=== PATIENT | female | born 1950 | race Caucasian/White ===

== ENCOUNTER → 2016-08-26 | Outpatient (CLI) | payer MEDICARE | END | disposition home or self-care (01) | LOC: PCVCIMAG 10:23 | PROVIDERS: ATTEND Internal Medicine | DX: I42.8 Other cardiomyopathies (principal); I10 Essential (primary) hypertension; E78.5 Hyperlipidemia, unspecified; I34.0 Nonrheumatic mitral (valve) insufficiency; F17.200 Nicotine dependence, unspecified, uncomplicated | CPT/HCPCS: 93017; 93306; G0463 ==

== ENCOUNTER → 2017-03-16 | Outpatient (CLI) | payer MEDICARE | END | disposition home or self-care (01) | LOC: PCVCCLINIC 16:24 | PROVIDERS: ATTEND Internal Medicine | DX: I10 Essential (primary) hypertension (principal); I42.8 Other cardiomyopathies; E78.5 Hyperlipidemia, unspecified; F17.200 Nicotine dependence, unspecified, uncomplicated; Z79.899 Other long term (current) drug therapy; Z90.710 Acquired absence of both cervix and uterus; Z88.8 Allergy status to other drugs, medicaments and biological substances | CPT/HCPCS: 80061; 93005; G0463 ==

== ENCOUNTER → 2017-09-14 | Outpatient (CLI) | payer MEDICARE | END | disposition home or self-care (01) | LOC: PCVCCLINIC 13:19 | DX: I42.8 Other cardiomyopathies (principal); E78.5 Hyperlipidemia, unspecified; I10 Essential (primary) hypertension; F17.210 Nicotine dependence, cigarettes, uncomplicated; Z79.899 Other long term (current) drug therapy | CPT/HCPCS: 80061; 93005; G0463 ==

== ENCOUNTER → 2018-03-22 | Outpatient (CLI) | payer MEDICARE | END | disposition home or self-care (01) | LOC: PCVCCLINIC 12:50 | PROVIDERS: ATTEND Internal Medicine | DX: I42.8 Other cardiomyopathies (principal); E78.5 Hyperlipidemia, unspecified; I10 Essential (primary) hypertension; F17.200 Nicotine dependence, unspecified, uncomplicated; F17.210 Nicotine dependence, cigarettes, uncomplicated | CPT/HCPCS: 80061; 93005; G0463 ==

== ENCOUNTER → 2018-09-09 | Outpatient (CLI) | payer MEDICARE ==
--- NOTE | 2018-09-09 15:01 | PCVCIMAG ---
APPROVED REPORT Study performed: 09/09/2018 12:50:19 EXAM: Comprehensive 2D, Doppler, and color-flow Echocardiogram Patient Location: Echo lab Status: routine BSA: 1.76 HR: 51 bpmBP: 130/80 mmHg Rhythm: NSR Other Information Study Quality: Good Risk Factors: Cardiac Risk Factors: HTN, Smoking Indications Cardiomyopathy Hypertension/HDD 2D Dimensions IVSd: 8.58 (7-11mm)LVOT Diam: 20.00 (18-24mm) LVDd: 39.16 mm PWd: 6.44 (7-11mm)Ascending Ao: 29.17 (22-36mm) LVDs: 23.26 (25-40mm) Left Atrium: 31.82 (27-40mm) Aortic Root: 23.04 mm LV Single Plane 4CH: 64.33 % LV Single Plane 2CH: 67.96 % Biplane EF: 67.1 % Volumes Left Atrial Volume (Systole) Single Plane 4CH: 29.17 mLSingle Plane 2CH: 47.37 mL LA ESV Index: 23.00 mL/m2 Aortic Valve AoV Peak Amarjit.: 2.26 m/s AO Peak Gr.: 20.35 mmHgLVOT Max P.14 mmHg AO Mean Gr.: 10.24 mmHgLVOT Mean P.34 mmHg AO V2 Mean: 1.52 m/sLVOT Max V: 1.88 m/s AO V2 VTI: 54.57 cmLVOT Mean V: 1.40 m/s RACHANA (VTI): 2.73 pm7ICDH V1 VTI: 47.43 cm RACHANA Vmax: 2.62 cm2 AI Vmax: 4.66 m/sSV (LVOT): 148.85 mL AI Rogers: 2.89 m/s2 AI PHT: 468.22 ms Mitral Valve IVRT: 89.97 ms TDI Medial E' Amarjit.: 0.08 m/s Lateral E' Amarjit.: 0.07 m/s Pulmonary Valve PV Peak Gr.: 4.32 mmHg Pulmonary Vein P Vein S: 0.60 m/sP Vein A: 0.39 m/s P Vein D: 0.37 m/sP Vein A Dur.: 128.0 msec P Vein S/D Ratio: 1.62 Tricuspid Valve TR Peak Amarjit.: 2.52 m/s TR Peak Gr.: 25.39 mmHg Left Ventricle The left ventricle is normal size. There is normal LV segmental wall motion. Mild concentric left ventricular hypertrophy. Left ventricular systolic function is normal. The left ventricular ejection fraction is within the normal range. LVEF is 65%. Very mild LVOT gradient The left ventricular diastolic function is normal. Right Ventricle The right ventricle is normal size. The right ventricular systolic function is normal. Atria The left atrium size is normal. The right atrium size is normal. Aortic Valve The aortic valve is mildly calcified, mildly stenotic Trace aortic regurgitation. Calculated aortic valve area is 2.4cm2 with maximum pressure gradient of 20 mmHg and mean pressure gradient of 10 mmHg. Mitral Valve The mitral valve is normal in structure. Mild mitral regurgitation. No evidence of mitral valve stenosis. Tricuspid Valve The tricuspid valve is normal in structure. Trace tricuspid regurgitation. Pulmonary artery pressure is 33mmHg. Pulmonic Valve The pulmonary valve is normal in structure. There is no pulmonic valvular regurgitation. Great Vessels The aortic root is normal in size. IVC is normal in size and collapses >50% with inspiration. Pericardium There is no pericardial effusion. <Conclusion> Left ventricular systolic function is normal. Mild concentric left ventricular hypertrophy. There is normal LV segmental wall motion. LVEF is 65%. Very mild LVOT gradient The Aortic valve is mildly calcified, mildly stenotic. Trace aortic regurgitation Calculated aortic valve area is 2.4cm2 with maximum pressure gradient of 20 mmHg and mean pressure gradient of 10 mmHg. Mild mitral annular calcification. Mild mitral regurgitation. Trace tricuspid regurgitation. Pulmonary artery pressure of 33mmHg. There is no pericardial effusion.
== END | disposition home or self-care (01) ==
LOC: PCVCIMAG 12:40
PROVIDERS: ATTEND Internal Medicine
DX: I34.0 Nonrheumatic mitral (valve) insufficiency (principal); I42.8 Other cardiomyopathies; I10 Essential (primary) hypertension; E78.5 Hyperlipidemia, unspecified; F17.210 Nicotine dependence, cigarettes, uncomplicated
CPT/HCPCS: 36415; 80061; 93005; 93306; G0463

== ENCOUNTER → 2019-01-25 | Outpatient (CLI) | payer MEDICARE | END | disposition home or self-care (01) | LOC: PCVCCLINIC 15:11 | PROVIDERS: ATTEND Nuclear Medicine Nuclear Cardiology | DX: I73.9 Peripheral vascular disease, unspecified (principal); I10 Essential (primary) hypertension; E78.5 Hyperlipidemia, unspecified; F17.210 Nicotine dependence, cigarettes, uncomplicated | CPT/HCPCS: G0463 ==

== ENCOUNTER → 2019-03-16 | Outpatient (CLI) | payer MEDICARE | END | disposition home or self-care (01) | LOC: PCVCCLINIC 15:15 | PROVIDERS: ATTEND Internal Medicine | DX: I42.8 Other cardiomyopathies (principal); I10 Essential (primary) hypertension; E78.5 Hyperlipidemia, unspecified; I65.23 Occlusion and stenosis of bilateral carotid arteries; I73.9 Peripheral vascular disease, unspecified; F17.210 Nicotine dependence, cigarettes, uncomplicated; Z80.9 Family history of malignant neoplasm, unspecified; Z82.49 Family history of ischemic heart disease and other diseases of the circulatory system; Z72.89 Other problems related to lifestyle; Z88.1 Allergy status to other antibiotic agents; Z88.8 Allergy status to other drugs, medicaments and biological substances; Z90.710 Acquired absence of both cervix and uterus | CPT/HCPCS: 36415; 80061; 93005; G0463 ==

== ENCOUNTER → 2019-04-27 | Outpatient (CLI) | payer MEDICARE ==
[~2019-04-27] MED LIST: REGADENOSON 0.4 MG/5 ML DISP.SYRIN. IV ONE
--- NOTE | 2019-04-27 09:21 | PCVCIMAG ---
APPROVED REPORT Indications Bruit Risk Factors Hypertension: Hyperlipidemia History of Smoking Doppler Spectral Velocity Analysis PSV / EDVPSV / EDV ECA (R) 90 / 14 cm/sECA (L) 106 / 16 cm/s dICA (R) 56 / 19 cm/sdICA (L) 64 / 22 cm/s Magdi (R) 64 / 19 cm/smICA (L) 72 / 22 cm/s pICA (R) 59 / 13 cm/spICA (L) 56 / 13 cm/s Bulb (R) 48 / 10 cm/sBulb (L) 51 / 14 cm/s dCCA (R) 82 / 18 cm/sdCCA (L) 74 / 19 cm/s mCCA (R) 89 / 17 cm/smCCA (L) 79 / 14 cm/s Vert (R) 49 / 10 cm/sVert (L) 53 / 14 cm/s ICA/CCA 0.72ICA/CCA 0.90 Basic Measurements Blood Pressure: Pulses: Right Left RightLeft Brachial(Sitting) 146/04lbHd175/74mmHgTemporal Real Time B-Mode Imaging Vert. (R)AntegradeVert. (L)Antegrade Findings The right carotid bulb has minimal plaque. The right proximal internal carotid artery shows no significant stenosis. The right common carotid artery shows no significant stenosis. The right external carotid artery shows no significant stenosis. The left carotid bulb has mild plaque. The left proximal internal carotid artery shows no significant stenosis. The left common carotid artery shows no significant stenosis. The left external carotid artery shows no significant stenosis. Conclusion 1. Mild bilateral plaquing without significant stenosis. 2. Antegrade vertebral flow.
--- NOTE | 2019-04-27 16:06 | PCVCIMAG ---
APPROVED REPORT Imaging Protocol: Rest Tc-99m/Stress Tc-99m 1 day Study performed: 04/27/2019 09:40:13 Indication: Obstructive Cardiomyopathy Patient Location: Out-Patient Stress Nurse: Henrietta Kam RN, [place] RN NE Tech:Angelika Lebron [facility] Ht: 5 ft 2 in Wt: 169 lbs BSA: 1.78 m2 HR: 54 bpm BP: 141/63 mmHg BMI: 30.9 Rhythm: Bradycardia Medical History Medical History: HTN, CVD, PVD, Current Smoker Medications: Atenolol, Aspirin, Norvasc, Plavix, Crestor Allergies: Bactrim, Flagyl, Phenobarbital Cardiac Risk Factors: Age Pretest Chest Pain Characteristics: No chest pain Exercise History: Physically active Meds Held (24 hrs): Atenolol Resting Data Rest SPECT myocardial perfusion imaging was performed in supine position 45 minutes following the intravenous injection of 10.1 mCi of Tc-99m Sestamibi. Time of rest injection: 09 Date: 04/27/2019 Administration Route: IV Administration Site: Right AC Pharmacologic Stress Pharmacologic stress test was performed by injecting Regadenoson 0.4 mg IV push over 10-15 seconds immediately followed by the intravenous injection of 32.8 mCi of Tc-99m Sestamibi. Time of stress injection: 1115 Date: 04/27/2019 Administration Route: IV Administration Site: Right AC Gated Stress SPECT was performed 45 minutes after stress injection. The images were gated to evaluate regional wall motion and calculate left ventricular ejection fraction. Stress Test Details Stress Test: Pharmacologic stress testing performed using 0.4 mg of regadenoson per 5 mL given IV over 10 seconds. Reason for pharmacologic stress test: physical limitation, dizzy. HRMax Heart Rate (APMHR): 151 bpm Resting HR: 54 bpmTarget HR (85% APMHR): 128 bpm Max HR Achieved: 88 bpm % of APMHR: 58 Recovery HR: 77 bpm BP Resting BP: 141/63 mmHg Max BP: 154/58 mmHg Recovery BP: 135/63 mmHg ECG Resting ECG: Sinus Bradycardia Stress ECG: Sinus Rhythm with occasional ectopic atrial rhythm ST Change: None Maximum ST Deviation: 0 mm Arrhythmia: None Recovery ECG: Sinus Rhythm Clinical Reason for Termination: Completed protocol Stress Symptoms: Dyspnea, Dizziness Symptoms resolved with caffeine. Stress ECG Conclusion ECG: Non-ischemic Clinical: Non-ischemic Study Quality Study: Good Study Data Post stress, the left ventricular ejection was 80%.. SSS: 0 SRS: 0 SDS: 0 TID = 1.06. Perfusion No evidence of stress induced ischemia or prior myocardial infarction. Wall Motion Normal left ventricular size and function with no regional wall motion abnormalities. Nuclear Conclusion No evidence of stress induced ischemia or prior myocardial infarction. Normal left ventricular size and function with no regional wall motion abnormalities. Post stress, the left ventricular ejection was 80%. No prior study available for comparison. Interpreted by: Edilson Schreiber MD Electronically Approved: 04/27/2019 14:39:31 <Conclusion> ECG: Non-ischemic Clinical: Non-ischemic
== END | disposition home or self-care (01) ==
LOC: PCVCIMAG 08:50
PROVIDERS: ATTEND Internal Medicine
DX: I65.23 Occlusion and stenosis of bilateral carotid arteries (principal); I10 Essential (primary) hypertension; E78.5 Hyperlipidemia, unspecified; I42.8 Other cardiomyopathies; F17.200 Nicotine dependence, unspecified, uncomplicated
CPT/HCPCS: 78452; 93017; 93880; A9500; J2785